=== PATIENT | male | born 1960 | race Caucasian/White ===

== ENCOUNTER → 2018-08-11 | Outpatient (CLI) | payer OTHER | LOC: CAT 15:27 | DX: Z13.6 Encounter for screening for cardiovascular disorders (principal); E78.00 Pure hypercholesterolemia, unspecified; I25.10 Atherosclerotic heart disease of native coronary artery without angina pectoris ==

== ENCOUNTER 2018-11-21 19:34 | Emergency (ER) | payer OTHER ==
[~2018-11-21] VITALS: Ht 177.8 cm; Wt 93.9 kg
[2018-11-21] MEDS ORDERED: PREDNISONE 20 M20 MG PO (21:29)
[2018-11-21] MEDS ORDERED: NORFLEX100 MG PO (21:29)
[2018-11-21 22:00] VITALS: BP 163/93
[2018-11-21] MEDS ORDERED: CYCLOBENZAPRINE5 MG PO (23:40)
[2018-11-21] MEDS ORDERED: OXYCONTIN15 MG PO (23:40)
[2018-11-21] MEDS ORDERED: NORCO 10-325 T1 EACH PO (23:43)
[2018-11-21] MEDS ORDERED: ZTLIDO1 EACH TOP (23:44)
== END 2018-11-21 22:15 | disposition home or self-care (01) ==
LOC: ER 19:34
DX: S39.012A Strain of muscle, fascia and tendon of lower back, initial encounter (principal); M54.16 Radiculopathy, lumbar region; F17.210 Nicotine dependence, cigarettes, uncomplicated; X58.XXXA Exposure to other specified factors, initial encounter; Y93.89 Activity, other specified; Y92.89 Other specified places as the place of occurrence of the external cause; Y99.8 Other external cause status